=== PATIENT | male | born 1945 | race Caucasian/White ===

== ENCOUNTER → 2019-10-07 | Outpatient (CLI) | payer OTHER ==
[~2019-10-07] MED LIST: ATENOLOL50 MG PO; GLUCOSAMINE & C1 CA2 PO; HYDROCODONE BIT1 T11 PO; MASON NATURAL1000 MG PO; POTASSIUM20 MEQ PO; ULORIC40 MG PO; VITAMIN D5000 IU PO
== END | disposition home or self-care (01) ==
LOC: COVID19 09:01
DX: Z20.828 Contact with and (suspected) exposure to other viral communicable diseases (principal)

== ENCOUNTER 2023-04-05 11:55 | Emergency (ER) | payer OTHER ==
[2023-04-05] MEDS ORDERED: HYDROCODONE-AC1 EAC1 PO (14:39)
== END 2023-04-05 14:54 | disposition home or self-care (01) ==
LOC: ED 11:55
DX: S22.41XA Multiple fractures of ribs, right side, initial encounter for closed fracture (principal); I11.0 Hypertensive heart disease with heart failure; I50.9 Heart failure, unspecified; Z98.890 Other specified postprocedural states; W10.8XXA Fall (on) (from) other stairs and steps, initial encounter; Y93.01 Activity, walking, marching and hiking; Y92.89 Other specified places as the place of occurrence of the external cause; Y99.8 Other external cause status

== ENCOUNTER → 2024-12-18 | Outpatient (CLI) | payer OTHER ==
[~2024-12-18] MED LIST changes: +ALLOPURINOL100 MG PO; +CELECOXIB200 MG PO; +HYDROCODONE-AC1 EAC1 PO; +Regadenoson 0.4 MG/5 ML SYR IV ONE; +Technetium Tc 99M Tetrofosmi 0.23 MG KIT IJ SCH
== END | disposition home or self-care (01) ==
LOC: CARD 02:27
PROVIDERS: ATTEND Nurse Practitioner Family
DX: Z01.810 Encounter for preprocedural cardiovascular examination (principal); R94.31 Abnormal electrocardiogram [ECG] [EKG]